=== PATIENT | female | born 1945 | race Caucasian/White ===

== ENCOUNTER 2017-03-14 12:30 | Outpatient (CLI) | payer MEDICARE, BC ==
--- NOTE | 2017-03-14 15:22 | RAD ---
LEFT FOOT THREE VIEWS: History: 71-year-old female with left foot pain for several days without associated trauma. FINDINGS: There are osteoarthrosis changes involving the left foot, particularly the dorsal metatarsal joints. No acute fracture or dislocation. IMPRESSION: Left foot degenerative and osteoarthrosis changes without fracture or dislocation. POS: [facility]
== END 2017-03-14 12:31 | disposition home or self-care (01) ==
LOC: MADRAD 12:30
PROVIDERS: ATTEND General Practice
DX: M79.672 Pain in left foot (principal)

== ENCOUNTER 2018-12-30 15:56 | Emergency (ER) | payer MEDICARE, BC ==
--- NOTE | 2018-12-30 16:30 | RAD ---
CHEST TWO VIEWS: HISTORY: Chest pain. COMPARISON: A comparison study is not available. TECHNIQUE: PA and lateral views of the chest are obtained. FINDINGS: Two views of the chest demonstrate cardiomegaly. Pulmonary vascular congestion is seen. No evidence of effusions, pneumonia, or pneumothorax is seen. IMPRESSION: 1. Cardiomegaly. 2. Pulmonary vascular congestion. POS: [facility]
[2018-12-30 16:40] LABS: #Eosinphils 0.1 thou/uL (0.0-0.7); #Lymphocytes 2.1 thou/uL (1.20-3.40); #Monocytes 0.5 thou/uL (0.11-0.59); #Neutrophils 3.9 thou/uL (1.40-6.50); %Basophils 0.5 % (0.0-1.0); %Eosinophils 1.4 % (0.0-10.0); %Lymphocytes 32.2 % (21.0-51.0); %Monocytes 7.3 % (0.0-10.0); %Neutrophils 58.7 % (42.0-75.0); Hemoglobin 13.5 g/dL (12.0-16.0); Mean Corpuscular HGB CONC 31.1 g/dL (32.0-36.0); Mean Corpuscular Hemoglobin 27.7 pg (27.0-31.0); Mean Corpuscular Volume 89.2 fL (78.0-98.0); Mean Platelet Volume 7.2 fL (7.4-10.4); Platelet Count 244 thou/uL (130-400); RBC Distribution Width 12.8 % (11.5-14.5); Red Blood Cell (RBC) Count 4.88 mill/uL (4.20-5.40); White Blood Cell (WBC) Count 6.6 thou/uL (4.8-10.8)
[2018-12-30 16:58] LABS: ALT (SGPT) 22 U/L (8-55); AST (SGOT) 21 U/L (5-34); Alkaline Phosphatase 70 U/L (40-150); Anion Gap 11 mmol/L (10-20); BUN (Urea Nitrogen) 17 mg/dL (9.8-20.1); Bilirubin, Total 0.2 mg/dL (0.2-1.2); Calc. Creatinine Clearance 0 mL/min (70-130); Calcium 8.9 mg/dL (7.8-10.44); Carbon Dioxide 28 mmol/L (23-31); Chloride 107 mmol/L (98-107); Estimated GFR-MDRD 73; Globulin 2.2 g/dL (2.4-3.5); Glucose 109 mg/dL (83-110); Potassium 4.5 mmol/L (3.5-5.1); Protein, Total 6.2 g/dL (6.0-8.3); Sodium 141 mmol/L (136-145)
== END 2018-12-30 18:54 | disposition short-term general hospital (02) ==
LOC: MADERS 15:56
DX: M79.622 Pain in left upper arm (principal); I10 Essential (primary) hypertension; E03.9 Hypothyroidism, unspecified; E78.5 Hyperlipidemia, unspecified; Z79.899 Other long term (current) drug therapy
CPT/HCPCS: 36415; 71046; 80053; 83880; 84484; 85025; 93005; 94760